=== PATIENT | female | born 1960 | race Two or more races ===

== ENCOUNTER 2017-12-15 05:18 | Day surgery (SDC) | payer OTHER ==
[2017-12-14 15:56] VITALS: BMI 27.4
[2017-12-15] MEDS ORDERED: LIDOCAINE HCL 1%, 10 MG/ML (20ML VIAL) ONE (13:28)
[2017-12-15] MEDS ORDERED: PROPOFOL 20 ML ONE (13:46)
[2017-12-15] MEDS ORDERED: MIDAZOLAM HCL 2 MG/2 ML SINGLE DOSE VIAL ONE (13:46)
[2017-12-15] MEDS ORDERED: ceFAZolin SODIUM 1 GM VIAL IVPB ONE (13:50)
[2017-12-15] MEDS ORDERED: ceFAZolin SODIUM 1 GM VIAL ONE (13:51)
[2017-12-15] MEDS ORDERED: LIDOCAINE HCL 1%, 10 MG/ML (50 mL VIAL) IJ ONE (13:52)
--- NOTE | 2017-12-15 14:23 | OP ---
Operative Note - Note: Operative Date: 12/15/17 Pre-Operative Diagnosis: rule out dermatomyositis Operation: right thigh muscle biopsy Post-Operative Diagnosis: Same as Pre-op Surgeon: Pete Mendoza Anesthesia: Fractional Estimated Blood Loss (mls): 20 Operative Report Dictated: Yes
--- NOTE | 2017-12-15 14:33 | HP ---
Admitting History and Physical - Admission Chief Complaint: muscle weakness, dermatomyositis Limitations to Obtaining History: No Limitations - Smoking History Smoking history: Never smoked Have you smoked in the past 12 months: No - Alcohol/Substance Use Hx Alcohol Use: No Home Medications - Allergies Allergies/Adverse Reactions: Allergies Allergy/AdvReac Type Severity Reaction Status Date / Time No Known Allergies Allergy Verified 12/15/17 12:38 - Home Medications Home Medications: Ambulatory Orders Hydroxychloroquine Sulfate [Plaquenil] 200 mg PO BID 12/14/17 Prednisone 60 mg PO DAILY 12/14/17 Review of Systems - Review of Systems Constitutional: reports: No Symptoms Eyes: reports: No Symptoms HENT: reports: No Symptoms Neck: reports: No Symptoms Cardiovascular: reports: No Symptoms Respiratory: reports: No Symptoms Gastrointestinal: reports: No Symptoms Genitourinary: reports: No Symptoms Breasts: reports: No Symptoms Reported Musculoskeletal: reports: No Symptoms Integumentary: reports: No Symptoms Neurological: reports: No Symptoms Endocrine: reports: No Symptoms Hematology/Lymphatic: reports: No Symptoms Psychiatric: reports: No Symptoms Physical Examination Vital Signs: Vital Signs Temperature 98.3 F 12/15/17 12:28 Pulse Rate 73 12/15/17 12:28 Respiratory Rate 20 12/15/17 12:28 Blood Pressure 115/68 12/15/17 12:28 O2 Sat by Pulse Oximetry (%) 98 12/15/17 12:28 Constitutional: Yes: Well Nourished, No Distress, Calm Eyes: Yes: WNL, Conjunctiva Clear, EOM Intact HENT: Yes: WNL, Atraumatic, Normocephalic Neck: Yes: WNL, Supple, Trachea Midline Cardiovascular: Yes: WNL, Regular Rate and Rhythm Respiratory: Yes: WNL, Regular, CTA Bilaterally Gastrointestinal: Yes: WNL, Normal Bowel Sounds ...Rectal Exam: Yes: WNL Renal/: Yes: WNL Breast(s): Yes: WNL Musculoskeletal: Yes: WNL Extremities: Yes: WNL Edema: No Peripheral Pulses WNL: Yes Integumentary: Yes: WNL Neurological: Yes: WNL, Alert, Oriented ...Motor Strength: WNL Psychiatric: Yes: WNL Problem List - Problems (1) Dermatomyositis Code(s): M33.90 - DERMATOPOLYMYOSITIS, UNSP, ORGAN INVOLVEMENT UNSPECIFIED Assessment/Plan rule out dermatomyositis 1. for right thigh muscle biopsy today
--- NOTE | 2017-12-15 17:15 | OP ---
DATE OF OPERATION: 12/15/2017 PREOPERATIVE DIAGNOSIS: Rule out dermatomyositis. POSTOPERATIVE DIAGNOSIS: Rule out dermatomyositis. PROCEDURE: Right thigh muscle biopsy. SURGEON: Pete Barakat M.D. ANESTHESIA: Fractional. BLOOD LOSS: 20 mL. INDICATION: The patient is a 57-year-old female sent from the elastic cutter to rule out dermatomyositis. The elastic cutter would like a muscle biopsy. The patient came into ambulatory surgery. Patient was consented for the procedure understanding all risks, benefits, and alternatives and taken to the operating room. DESCRIPTION OF PROCEDURE: Once in the operating room, she was laid on the operating table in a supine manner, and the area of the right thigh was prepped and draped in sterile surgical manner. We then made a 5-cm transverse incision over the right thigh hemostasis we used electrocautery to get down through all the subcutaneous tissue and get down to the fascia. Fascia was then opened with the Metzenbaum scissors and muscle was visualized. We then took an Allis clamp and we were able to grab the muscle, and with Metzenbaum scissors we were able to transect the muscle and sent it to pathology. Bovie electrocautery was used to control all hemostasis. Wound was well irrigated. 3-0 Vicryl was used and the subcutaneous tissue was approximated in an interrupted manner, and the skin was closed with 4-0 Biosyn subcuticular running fashion. We then went and dried the area, Steri-Strips were placed, 4x4s, Tegaderm was placed. Patient tolerated the procedure with no complications. Patient transferred back in stable condition. PETE BARAKAT DO NP/[id number]
[2017-12-15 18:22] VITALS: BP 130/70; PULSE 68; TEMP 98
--- NOTE | 2017-12-26 14:13 | PATH ---
Surgical Pathology Report Patient Name: VARINDER TAO [facility]. Rec. #: [id number] /Age/Gender: 1960 (Age: 57) / F Account: [id number] Location: [facility] SURGICAL Taken: 12/15/2017 Received: 12/15/2017 Reported: 12/26/2017 Physicians: Pete Mendoza Specimen(s) Received MUSCLE BIOPSY, RIGHT THIGH Clinical History Dermatomyositis Final Diagnosis MUSCLE, THIGH, RIGHT, BIOPSY: ACTIVE MYOPATHY, SHOWING FOCALIZED, MYOCYTE INJURY AND MILD CHRONIC INFLAMMATION IN THE BACKGROUND OF MYOFIBER ATROPHY, COMPATIBLE WITH DERMATOMYOSITIS AND RELATED CONDITIONS. Comment: This biopsy reveals focalized myocyte injury associated with regional, mild, chronic inflammatory response, in the background of myofiber atrophy. Vaguely, a perifascicular pattern of involvement is suggested. Immunohistochemically, MHC class I is found to be upregulated, also exhibiting a perifascicular pattern. Taken together with the provided clinical information of skin rash (by a telephone conversation with Dr. Worthington, the patient's clip riveter, on 12/22/2017), as well as positive-QUANG, significant CK and aldolase elevation, and myopathic EMG, our morphological observation places dermatomyositis and related conditions high in the differential diagnosis. It is, however, noted that in general, dermatomyositis, systemic lupus erythematosus, and antisynthetase syndrome could show on biopsy indistinguishable features, and clinical correlation is requested to rule in/out of those diseases. We have carried out an electron microscopic examination: ultra-thin epoxy resin sections have been magnified by the transmission electron microscope in the range between 15,000x and 50,000x, focusing upon possible abnormalities in the endomysial microvessels. There is a necrotic capillary. Some viable endomysial capillaries show slightly thickened endothelial cells with reduced pinocytotic vesicles, exhibiting mildly hyperplastic organelles. The basal lamina of those capillaries are mildly thickened. There is a reticulotubular aggregate (RTA) in one of those endothelial cells. In general, RTA can be seen in dermatomyositis, SLE, Sjogren syndrome, mixed connective tissue disease, as well as HIV infection. Therefore, the result of this electron microscopic examination further supports our light microscopic impression, and we finalize the diagnosis. This case was sent for consultation and work-up to Dr. Colin Garcia from [place], [place], the diagnosis reflects her opinion ([id number]). See Graves report for additional details ([id number]). Electronically Signed Pebbles Lopez M.D. Gross Description Received fresh labeled "muscle biopsy right thigh," is a 2 cm in length x 1.2 cm in diameter red-brown, cylindrical portion of muscle. The specimen is divided, placed into saline soaked gauze, glutaraldehyde and formalin. The specimen is sent to [facility] for further studies. 12/15/2017 saudi12/15/2017
== END 2017-12-15 16:15 | disposition home or self-care (01) ==
LOC: JASU-SURG 05:18
PROVIDERS: ATTEND Surgery Vascular Surgery
PROC: 0KBQ0ZX Excision of Right Upper Leg Muscle, Open Approach, Diagnostic (ICD-10-PCS; principal; 2017-12-15 14:00)
DX: M33.90 Dermatopolymyositis, unspecified, organ involvement unspecified (principal)
CPT/HCPCS: 88300-TC

== ENCOUNTER 2018-05-20 06:09 | Inpatient (IN) | payer OTHER ==
--- NOTE | 2018-05-12 10:08 | HP ---
Admitting History and Physical - Primary Care Physician PCP: Davian Glass - Admission Chief Complaint: Right breast DCIS History of Present Illness: 57 year old postmenapasusal female with Dermatomyositis x8 mos and was on steroid taper recently. Mammogram showed extensive calcifications right breast upper outer quarant extending over 5.4 cm. Stereotactic core bx on more medial and lateral calcifiactions 03/2018 both came back with high grade DCIS ER/[place]+. She has a BRCA 1 VUS on genetic testing. History Source: Patient Limitations to Obtaining History: Language Barrier (speaks croatian) - Past Medical History Dermatology: Yes: Other (Dermatomyositis x8 mos with body rash) - Past Surgical History Past Surgical History: Yes: Cholecystectomy Additional Past Surgical History: CTS - Smoking History Smoking history: Never smoked Have you smoked in the past 12 months: No - Alcohol/Substance Use Hx Alcohol Use: No Home Medications - Allergies Allergies/Adverse Reactions: Allergies Allergy/AdvReac Type Severity Reaction Status Date / Time No Known Allergies Allergy Verified 12/15/17 12:38 - Home Medications Home Medications: Ambulatory Orders Hydroxychloroquine Sulfate [Plaquenil] 200 mg PO BID 12/14/17 Prednisone 60 mg PO DAILY 12/14/17 Family Disease History - Family Disease History Family Disease History: CA: Grandparent (pancreatic 50), Brother (lung ca 63) Physical Examination Constitutional: Yes: Well Nourished Breast(s): Yes: Other ( Small B sized cups Scarring right breast upper aspect from recent bxs. No palpable masses or adenopathy bilaterally . She does have a diffuset thickened rash on her skin consistent with dermatomyositis) Problem List - Problems (1) Ductal carcinoma in situ (DCIS) of right breast Code(s): D05.11 - INTRADUCTAL CARCINOMA IN SITU OF RIGHT BREAST Assessment/Plan Right total mastectomy,, lymphoscintogram , right sentenel node biopsy possible axillary node dissection reconstruction
[2018-05-18 14:17] VITALS: BMI 29.2
[2018-05-20] MEDS ORDERED: PAPAVERINE HCL 30 MG/1 ML 10 ML VIAL NR ONE (07:05)
[2018-05-20] MEDS ORDERED: BUPIVACAINE HCL/PF 0.25% (2.5MG/ML) 10 ML VIAL ONE (07:05)
[2018-05-20] MEDS ORDERED: ISOSULFAN BLUE 10 MG/ML VIAL SQ ONE (07:05)
[2018-05-20] MEDS ORDERED: LIDOCAINE 1%/EPI 1:100000 (20 ML MULTI DOSE VIAL) ONE (07:05)
[2018-05-20] MEDS ORDERED: HEPARIN NA (PORCINE) 5,000 UNITS/ML 1ML VIAL ONE (07:05)
[2018-05-20] MEDS ORDERED: PROPOFOL 20 ML ONE (07:27)
[2018-05-20] MEDS ORDERED: ROCURONIUM BROMIDE 50 MG/5 ML VIAL ONE ×3 (07:27→11:43)
[2018-05-20] MEDS ORDERED: MIDAZOLAM HCL 2 MG/2 ML SINGLE DOSE VIAL ONE ×2 (07:28)
[2018-05-20] MEDS ORDERED: LIDOCAINE HCL/PF 2% SDV 5ML VIAL ONE (07:28)
[2018-05-20] MEDS ORDERED: DEXAMETHASONE SOD PHOSPHATE 4 MG/1 ML VIAL ONE (07:28)
[2018-05-20] MEDS ORDERED: KETAMINE HCL 200 MG/20 ML VIAL ONE (07:28)
[2018-05-20] MEDS ORDERED: ONDANSETRON 4 MG/2 ML VIAL ONE ×2 (07:28→17:37)
[2018-05-20] MEDS ORDERED: SODIUM CHLORIDE 0.9% P/F 10 ML VIAL IJ ONE (07:28)
[2018-05-20] MEDS ORDERED: ceFAZolin SODIUM 1 GM VIAL ONE ×4 (07:28→17:37)
[2018-05-20] MEDS ORDERED: DESFLURANE GAS 240 ML BOTTLE IH ONE (07:37)
[2018-05-20] MEDS ORDERED: DEXMEDETOMIDINE HCL 200 MCG/2 ML IVPB ONE (07:37)
[2018-05-20] MEDS ORDERED: BUPIVACAINE LIPOSOME/PF (EXPAREL) 266 MG/20 ML VIAL NR ONE (08:00)
[2018-05-20] MEDS ORDERED: ESMOLOL HCL 100,000 MCG/10 ML VIAL ONE (08:11)
[2018-05-20] MEDS ORDERED: ceFAZolin SODIUM 1 GM VIAL IVPB ONE ×2 (08:36→12:30)
--- NOTE | 2018-05-20 12:47 | OP ---
DATE OF OPERATION: 05/20/2018 PREOPERATIVE DIAGNOSIS: Right breast extensive ductal carcinoma in situ. POSTOPERATIVE DIAGNOSIS: Right breast extensive ductal carcinoma in situ. PROCEDURE: Right breast total mastectomy with right axillary sentinel lymph node biopsy and right deep flap reconstruction. ANESTHESIA: General endotracheal anesthesia. PRIMARY SURGEON: Eric Funez MD CONTRACTS ADVISOR: SHAHANA Hopson, PRIMARY SURGEON: For the right breast deep flap reconstruction is Eric Guadalupe MD, with his multimedia production assistant, Terry Johnson MD. COMPLICATIONS: There are no complications. Briefly, the patient is a 57-year-old G3, P3, postmenopausal female of [facility] descent. She was found to have extensive calcifications in the right breast on screening mammography and underwent stereotactic core biopsies of the medial and lateral extent of the calcifications with both turned out to be high-grade DCIS extending over an area of over 5 cm. Given the extensive calcifications, mastectomy was indicated. She was seen by the plastic surgeons and chose to have a deep flap reconstruction. She did have an MRI which showed the clips and disease in the right breast. The patient did undergo genetic testing which was negative with a VUS and a BRCA1 gene. She was brought in for the procedure on May 20, 2018, at [facility]. She underwent lymphoscintigraphy and nuclear medicine and was brought to the holding area. In the holding area, site verification was made, and informed consent was obtained. She was marked preoperatively by the plastic surgeon. Using translation services, consistent was obtained. Site verification was made. She was brought into the operating room and laid on the OR table in the supine position. Venodynes were placed on the lower extremities prior to induction. She received a g of Ancef prior to incision. She underwent general endotracheal anesthesia. Both breasts were sterilely prepped and draped in usual fashion, and the abdomen was prepped as well. The abdomen was marked preoperatively by the plastic surgeons to identify the perforators using both the SPY intraoperative perfusion device as well as intraoperative Doppler ultrasound. Three mL of Lymphazurin blue were injected intradermally around the periareolar region of the right breast nipple-areolar complex. Massage was instituted. After she was appropriately anesthetized and sterilely prepped and draped, the right axillary sentinel lymph node biopsy was first performed. An incision was made just below the hair-bearing area of the right axilla. Dissection was undertaken using the Neoprobe to direct the dissection. The first sentinel node was found in the level 1 region of the right axilla, had a 10-second count of 63,936, and was also blue. The second sentinel lymph node had a 10-second gamma count of 17,357, and was also blue. The third sentinel lymph node had a 10-second gamma count of 15,730, and was also blue. The fourth sentinel lymph node was blue and had a 10-second gamma count of 1307. Background count after removal of these 4 nodes was 1637. Frozen section of all 4 nodes came back negative, so no further nodes were removed. At this point, the right total mastectomy was performed through a periareolar incision encompassing the entire right breast nipple-areolar complex. Skin flaps were raised superiorly to the level of the clavicle, medially to the level of the sternum, laterally to the level of the latissimus, and inferiorly below the level of the inframammary fold. The breast was taken out off the pectoralis major muscle from medial to lateral and completely removed intact. It was oriented with a long lateral/short superior suture, and specimen radiograph showed removed removal of the medical clip, but the lateral more superficial clip was not seen on the initial specimen radiograph. An separate upper outer quadrant anterior margin of subcutaneous tissue was sent as right breast upper outer quadrant anterior margin with a suture marked in the biopsy cavity site, and specimen radiograph of that specimen did show the clip in question. Hemostasis was achieved. A separate superior anterior margin was also taken, and this was sent separately to Pathology in formalin as a right breast anterior superior margin with a suture marking the biopsy cavity site. At this point, hemostasis was achieved, and the wound was copiously irrigated with warm sterile saline. The skin flaps were inspected to be sure all visual gross breast tissue was completely excised. The rest of the dictation will be dictated by Plastic Surgery for the deep inferior epigastric pedicle flap. All sponge and needle counts were correct at this point in the case. Estimated blood loss was about 100 mL. She was hemodynamically stable at this point of the case. She did have a Peralta placed at the beginning of the case and had excellent urine output at this point of the case. She did receive a stress does of steroids with 100 mg of hydrocortisone given at the beginning of the case given her chronic steroid use. The patient will be recovered and then admitted to the ICU postoperatively for flap management postoperatively. She will have a TAP for local pain control at the end of the case, which will be performed by Plastic Surgery. ERIC FUNEZ M.D. [id number]
[2018-05-20] MEDS ORDERED: BUPIVACAINE HCL/PF 0.25% (2.5MG/ML) 10 ML VIAL IJ ONE (13:30)
[2018-05-20] MEDS ORDERED: BUPIVACAINE LIPOSOME/PF (EXPAREL) 266 MG/20 ML VIAL IJ ONE (13:30)
[2018-05-20] MEDS ORDERED: GLYCOPYRROLATE 0.2 MG/1 ML VIAL ONE (15:07)
[2018-05-20] MEDS ORDERED: NEOSTIGMINE METHYLSULFATE 0.5 MG/1 ML - 10 ML MDV ONE (15:07)
[2018-05-20] MEDS ORDERED: diazePAM 5 MG TABLET PO PRN (16:02)
[2018-05-20] MEDS: DEXTROSE 5%-0.45% SALINE 1,000 ML IV SCH (16:15)
[2018-05-20] MEDS ORDERED: ONDANSETRON 4 MG/2 ML VIAL IVPUSH PRN (17:23)
[2018-05-20] MEDS ORDERED: PROMETHAZINE HCL 25 MG/1 ML VIAL IVPUSH PRN (17:23)
[2018-05-20] MEDS ORDERED: LACTATED RINGERS SOLUTION 1,000 ML IV SCH (17:30)
--- NOTE | 2018-05-20 20:26 | CONSULT ---
Consult Consult Specialty:: ICU Reason for Consultation:: ICU monitoring post-mastectomy - History of Present Illness History of Present Illness: 57 yr old woman with dermatomyositis and DCIS ER/[place]+ s/p right breast total mastectomy with right axillary sentinel lymph node biopsy and right deep flap reconstruction admitted to ICU for flap management. POD#0. c/o dry throat and thirst. pain currently 4/10 at surgical sites. denies tachycardia, fever, abdominal pain, cough, n/v. Pmhx: dx'd with dermatomyositis 8 months ago via muscle biopsy, treated with prednisone daily and methotrexate qweekly Surghx: cholecystectomy - History Source History Provided By: Patient, Family Member, Medical Record - Past Medical History Dermatology: Yes: Other (Dermatomyositis x8 mos with body rash) Additional Medical History: Dermatomyositis with skin changes - Past Surgical History Past Surgical History: Yes: Cholecystectomy - Alcohol/Substance Use Hx Alcohol Use: No - Smoking History Smoking history: Never smoked Have you smoked in the past 12 months: No Home Medications - Allergies Allergies/Adverse Reactions: Allergies Allergy/AdvReac Type Severity Reaction Status Date / Time No Known Allergies Allergy Verified 12/15/17 12:38 - Home Medications Home Medications: Ambulatory Orders Prednisone 7.5 mg PO DAILY 12/14/17 Folic Acid 1 mg PO DAILY 05/18/18 Methotrexate [Mexate -] 20 mg PO Q7D 05/18/18 Family Disease History - Family Disease History Family Disease History: CA: Grandparent (pancreatic 50), Brother (lung ca 63) Physical Exam Vital Signs: Vital Signs Temperature 98.9 F 05/20/18 19:15 Pulse Rate 86 05/20/18 19:15 Respiratory Rate 16 05/20/18 19:15 Blood Pressure 128/88 05/20/18 19:15 O2 Sat by Pulse Oximetry (%) 100 05/20/18 19:15 Constitutional: Yes: No Distress, Calm Eyes: Yes: Conjunctiva Clear, EOM Intact HENT: Yes: Atraumatic, Normocephalic Neck: Yes: Supple, Trachea Midline Cardiovascular: Yes: Regular Rate and Rhythm. No: Murmur Respiratory: Yes: Other (quiet at bases) Gastrointestinal: Yes: Other (CDI dressing in place) Breast(s): Yes: Right (portion of incision visible through cutout on bra appears clean and dry without discharge. doppler flow) Extremities: Yes: WNL Edema: No Wound/Incision: Yes: Clean/Dry Neurological: Yes: Alert, Oriented Assessment/Plan 57 yr old woman s/p right mastectomy with flap POD #0 being monitored in the ICU. POD#0, instructed at per surgery orders 1 drain on left side, 2 drains on right side, monitor output pain control valium and oxycodone po Q1h doppler checks for flow on right breast flap zofran for nausea ancef q6hr IV for 24hrs Rheumotology Dermatomyositis - continue prednisone and methotrexate treatment Prophylaxis -GI -- pepcid BID - DVT - TEDS and SCD's Diet: clear liq diet without caffeine or chocolate, advance as tolerated Activity: OOB to chair as tolerated
[2018-05-20] MEDS ORDERED: CEFAZOLIN 1 GM/D5W 1 GM/50 ML BAG IVPB SCH (21:00)
[2018-05-20] MEDS: ASPIRIN 325 MG TABLET PO SCH (21:25)
[2018-05-20] MEDS: DOCUSATE SODIUM 100 MG CAPSULE (FP) PO SCH (21:25)
[2018-05-20] MEDS: CEFAZOLIN 1 GM/D5W 1 GM/50 ML BAG IVPB SCH (22:00)
[2018-05-20] MEDS: FAMOTIDINE 20 MG/50 ML IVPB 20 MG/50 ML MG IVPB SCH (22:00)
[2018-05-21] MEDS: DEXTROSE 5%-0.45% SALINE 1,000 ML IV SCH (04:20)
[2018-05-21] MEDS: CEFAZOLIN 1 GM/D5W 1 GM/50 ML BAG IVPB SCH ×3 (06:43→17:15)
[2018-05-21] MEDS ORDERED: DEXTROSE 5%-0.45% SALINE 1,000 ML IV SCH (08:00)
[2018-05-21] MEDS: oxyCODONE HCL 5 MG TABLET PO PRN ×4 (08:49→23:49)
--- NOTE | 2018-05-21 09:07 | PN ---
Progress Note (short form) - Note Progress Note: POD#1 PT without any complaints this am. Mild pressure to lower abdomen. Pt seen and examined with Dr. Johnson this am. No numbness or tingling to her upper extremities Vital Signs Period Temp Pulse Resp BP Sys/Silvestre Pulse Ox Last 24 Hr 98.9 F-99.8 F 79-105 16-19 107-148/56-89 97-100 QUINN: Left upper abd-45ml Right abd: 90ml Right breast: 96 ml Peralta 1300ml GEN: A&0x3, NAD Right breast with good doppler signal, gd cap refill to the breast without any evidence of ischemia. Surrounding breast tissue with minimal ecchymosis. Incision c/d/i without any drainage Abd: inc c/d/i with pernio dressing. No evidence of ischemia/drainage or erythema. Umbilicus c/d/i/viable. A/P: 57 yo female s/p Right breast mastectomy with THOMAS flap reconstruction, POD #1 Diet advanced to regular May be oob to chair(to remain in flexed position with ambulating and transfers) Continue IV abx Resume oral medications, pt on daily prednisone for skin condition. Will add vitamin A(oral) to promote healing Peralta removed after OOB Oral pain medications as needed DVT ppx with SCDs/ambulation and aspirin 325 daily May have Peter quispe removed, Continue serial flap checks
[2018-05-21 09:46] LABS: HEMATOCRIT 30.1 % (32.4-45.2); HEMOGLOBIN 10.3 GM/dL (10.7-15.3); MCH 34.3 pg (25.7-33.7); MCHC 34.1 g/dl (32.0-36.0); MEAN CELL VOLUME 100.4 fl (80-96); MEAN PLT VOLUME 7.1 fl (7.5-11.1); PLATELET COUNT 191 K/MM3 (134-434); RBC 2.99 M/mm3 (3.60-5.2); RDW 14.1 % (11.6-15.6); WHITE BLOOD COUNT 7.8 K/mm3 (4.0-10.0)
--- NOTE | 2018-05-21 09:59 | PN ---
Progress Note, Physician Chief Complaint: S/P right mastectomy with snbx and THOMAS reconstruction POD#1 History of Present Illness: Patient was seen today at the bedside and reports mild abdominal discomfort but otherwise is tolerating po well. - Current Medication List Current Medications: Active Medications Aspirin (Asa -) 325 mg PO DAILY [facility] Last Admin: 05/20/18 21:25 Dose: 325 mg Diazepam (Valium -) 5 mg PO Q8H PRN PRN Reason: MUSCLE SPASMS Docusate Sodium (Colace -) 100 mg PO BID [facility] Last Admin: 05/20/18 21:25 Dose: 100 mg Fentanyl (Sublimaze Injection -) 50 mcg IVPUSH [id number] PRN PRN Reason: PAIN-PACU ORDER X 4 DOSES ONLY Last Admin: 05/20/18 17:45 Dose: 50 mcg Folic Acid (Folic Acid -) 1 mg PO DAILY [facility] Hydrocortisone Sodium Succinate (Solu-Cortef -) 100 mg IVPB DAILY [facility] Dextrose/Sodium Chloride (D5-1/2ns -) 1,000 mls @ 125 mls/hr IV ASDIR [facility] Last Admin: 05/21/18 04:20 Dose: 125 mls/hr Cefazolin Sodium (Ancef 1 Gm Premixed Ivpb -) 1 gm in 50 mls @ 100 mls/hr IVPB Q6H [facility] Stop: 05/22/18 00:00 Last Admin: 05/21/18 06:43 Dose: 100 mls/hr Famotidine/Sodium Chloride (Pepcid 20 Mg Premixed Ivpb -) 20 mg in 50 mls @ 100 mls/hr IVPB BID [facility] Last Admin: 05/20/18 22:00 Dose: 100 mls/hr Methotrexate (Mexate -) 20 mg PO We@1000 [facility] Ondansetron HCl (Zofran Injection) 4 mg IVPUSH Q6H PRN PRN Reason: NAUSEA AND/OR VOMITING Last Admin: 05/20/18 17:45 Dose: 4 mg Oxycodone HCl (Roxicodone -) 5 mg PO Q4H PRN PRN Reason: PAIN LEVEL 1 - 3 Last Admin: 05/21/18 08:49 Dose: 5 mg Oxycodone HCl (Roxicodone -) 10 mg PO Q4H PRN PRN Reason: PAIN LEVEL 6-10 Prednisone (Deltasone -) 7.5 mg PO DAILY ARNULFO Promethazine HCl (Phenergan Injection -) 12.5 mg IVPUSH Q6H PRN PRN Reason: NAUSEA-FOR RESCUE AFTER 15 MIN Vitamin A (Aquasol A -) 20,000 units PO DAILY ARNULFO - Objective Vital Signs: Vital Signs Temperature 99.8 F H 05/21/18 06:00 Pulse Rate 81 05/21/18 08:00 Respiratory Rate 19 05/21/18 08:00 Blood Pressure 111/67 05/21/18 08:00 O2 Sat by Pulse Oximetry (%) 100 05/20/18 21:00 Constitutional: Yes: Well Nourished, Calm Breast(s): Yes: Other (Right mastectomy site incision is clean without any evidence of flap ischemia noted. The skin is warm and with good color. Abdominal incision is without erythema or discharge noted. The JPs with serosanginous discharge and maintaining suction. Good doppler signal as per Dr. Johnson.) Labs: CBC, BMP 05/21/18 09:35 Problem List - Problems (1) Ductal carcinoma in situ (DCIS) of right breast Code(s): D05.11 - INTRADUCTAL CARCINOMA IN SITU OF RIGHT BREAST Assessment/Plan Assessment S/P right mastectomy with right snbx and THOMAS reconstruction POD#1 Plan: Patient to be OOB today with assistance and maintain semi Flowers position. DC hydrocortisone and begin prednisone as ordered AxBx and pain control as ordered human services program specialist to see patient today for VNS at home IS 10 xs hourly Make appt to see Dr. Glass and Dr. Johnson
[2018-05-21] MEDS ORDERED: HYDROCORTISONE SOD SUCCINATE 100 MG/2 ML VIAL IVPB SCH (10:00)
[2018-05-21 10:17] LABS: ANION GAP 10 MMOL/L (8-16); BLOOD UREA NITROGEN 10 mg/dL (7-18); CALCIUM 7.6 mg/dL (8.5-10.1); CHLORIDE 109 mmol/L (98-107); CO2 25 mmol/L (21-32); CREATININE 0.8 mg/dL (0.55-1.3); GLUCOSE,RANDOM 123 mg/dL (74-106); MAGNESIUM 1.7 mg/dL (1.8-2.4); PHOSPHOROUS 2.7 mg/dL (2.5-4.9); POTASSIUM 3.4 mmol/L (3.5-5.1); SODIUM 143 mmol/L (136-145)
[2018-05-21] MEDS: FAMOTIDINE 20 MG/50 ML IVPB 20 MG/50 ML MG IVPB SCH ×2 (10:21→22:09)
[2018-05-21] MEDS: ASPIRIN 325 MG TABLET PO SCH (10:21)
[2018-05-21] MEDS: VITAMIN A 10,000 UNITS CAPSULE PO SCH (10:22)
[2018-05-21] MEDS: FOLIC ACID 1 MG TABLET (FP) PO SCH (10:22)
[2018-05-21] MEDS: DOCUSATE SODIUM 100 MG CAPSULE (FP) PO SCH ×2 (10:23→22:09)
[2018-05-21] MEDS: predniSONE 5 MG TABLET (UD) PO SCH (10:33)
[2018-05-21 11:14] LABS: ANISOCYTOSIS 0; MACROCYTOSIS 0; PLATELET ESTIMATE NORMAL
--- NOTE | 2018-05-21 12:02 | PN ---
Teaching Attending Note Name of Resident: Dorene Neff ATTENDING PHYSICIAN STATEMENT I saw and evaluated the patient. I reviewed the resident's note and discussed the case with the resident. I agree with the resident's findings and plan as documented. SUBJECTIVE: Patient seen and examined in the ICU. Awake and alert. NAD on NC O2. Pain seems adequately controlled. No SOB. Strong doppler pulses. Intake & Output 05/18/18 05/19/18 05/20/18 05/21/18 23:59 23:59 23:59 23:59 Intake Total 4115 900 Output Total 1170 1241 Balance 2945 -341 Weight 170 lb 170 lb Last Vital Signs Temp Pulse Resp BP Pulse Ox 99.4 F 70 18 105/59 L 100 05/21/18 10:00 05/21/18 10:00 05/21/18 10:00 05/21/18 10:00 05/20/18 21:00 Active Medications Aspirin (Asa -) 325 mg PO DAILY ON LICENSE OF [facility] Last Admin: 05/21/18 10:21 Dose: 325 mg Diazepam (Valium -) 5 mg PO Q8H PRN PRN Reason: MUSCLE SPASMS Docusate Sodium (Colace -) 100 mg PO BID ON LICENSE OF [facility] Last Admin: 05/21/18 10:23 Dose: 100 mg Fentanyl (Sublimaze Injection -) 50 mcg IVPUSH [id number] PRN PRN Reason: PAIN-PACU ORDER X 4 DOSES ONLY Last Admin: 05/20/18 17:45 Dose: 50 mcg Folic Acid (Folic Acid -) 1 mg PO DAILY ON LICENSE OF [facility] Last Admin: 05/21/18 10:22 Dose: 1 mg Dextrose/Sodium Chloride (D5-1/2ns -) 1,000 mls @ 125 mls/hr IV ASDIR ON LICENSE OF [facility] Last Admin: 05/21/18 04:20 Dose: 125 mls/hr Cefazolin Sodium (Ancef 1 Gm Premixed Ivpb -) 1 gm in 50 mls @ 100 mls/hr IVPB Q6H ON LICENSE OF [facility] Stop: 05/22/18 00:00 Last Admin: 05/21/18 11:48 Dose: 100 mls/hr Famotidine/Sodium Chloride (Pepcid 20 Mg Premixed Ivpb -) 20 mg in 50 mls @ 100 mls/hr IVPB BID ON LICENSE OF [facility] Last Admin: 05/21/18 10:21 Dose: 100 mls/hr Methotrexate (Mexate -) 20 mg PO We@1000 ON LICENSE OF [facility] Ondansetron HCl (Zofran Injection) 4 mg IVPUSH Q6H PRN PRN Reason: NAUSEA AND/OR VOMITING Last Admin: 05/20/18 17:45 Dose: 4 mg Oxycodone HCl (Roxicodone -) 5 mg PO Q4H PRN PRN Reason: PAIN LEVEL 1 - 3 Last Admin: 05/21/18 11:41 Dose: 5 mg Oxycodone HCl (Roxicodone -) 10 mg PO Q4H PRN PRN Reason: PAIN LEVEL 6-10 Prednisone (Deltasone -) 7.5 mg PO DAILY ON LICENSE OF [facility] Last Admin: 05/21/18 10:33 Dose: 7.5 mg Promethazine HCl (Phenergan Injection -) 12.5 mg IVPUSH Q6H PRN PRN Reason: NAUSEA-FOR RESCUE AFTER 15 MIN Vitamin A (Aquasol A -) 20,000 units PO DAILY ON LICENSE OF [facility] Last Admin: 05/21/18 10:22 Dose: 20,000 units = Constitutional: Yes: No Distress Eyes: Yes: Conjunctiva Clear, EOM Intact HENT: Yes: Atraumatic, Normocephalic Neck: Yes: Supple, Trachea Midline Cardiovascular: Yes: Regular Rate and Rhythm. No: Murmur Respiratory: Yes: Clear Gastrointestinal: Yes: Other (CDI dressing in place) Breast(s): Yes: Right (portion of incision visible through cutout on bra appears clean and dry without discharge. doppler flow) Extremities: Yes: WNL Edema: No Wound/Incision: Yes: Clean/Dry Neurological: Yes: Alert, Oriented Laboratory Results - last 24 hr 05/21/18 05/21/18 09:35 09:35 WBC 7.8 RBC 2.99 L Hgb 10.3 L Hct 30.1 L D MCV 100.4 H MCH 34.3 H MCHC 34.1 RDW 14.1 Plt Count 191 D MPV 7.1 L Neutrophils % No Result Required. Neutrophils % (Manual) 71.0 Band Neutrophils % 0.0 Lymphocytes % No Result Required. Lymphocytes % (Manual) 25.0 Monocytes % (Manual) 4 Eosinophils % (Manual) 0.0 Basophils % (Manual) 0.0 Myelocytes % (Man) 0 Promyelocytes % (Man) 0 Blast Cells % (Manual) 0 Nucleated RBC % 0 Metamyelocytes 0 Manual Slide Review Cancelled Hypochromia 0 Platelet Estimate Normal Polychromasia 0 Poikilocytosis 0 Anisocytosis 0 Microcytosis 0 Macrocytosis 0 Sodium 143 Potassium 3.4 L Chloride 109 H Carbon Dioxide 25 Anion Gap 10 BUN 10 Creatinine 0.8 Creat Clearance w eGFR > 60 Random Glucose 123 H Calcium 7.6 L Phosphorus 2.7 Magnesium 1.7 L Assessment/Plan POD #1: S/P right mastectomy with THOMAS flap Breast CA (DCIS) Dermatomyositis Follow Doppler Pulse Incentive Spirometry O2 as needed VTE prophylaxis Pain control Restart Prednisone OD PO as tolerated OOB to chair Further planning per surgery Dr Ya
[2018-05-21] MEDS ORDERED: POTASSIUM CHLORIDE TABS 10 MEQ TABLET.ER (FP) PO ONE (12:45)
[2018-05-21] MEDS ORDERED: CALCIUM GLUCONATE 10% - 1,000 MG/10 ML VIAL IVPB ONE (14:00)
--- NOTE | 2018-05-21 14:12 | PN ---
Progress Note (short form) - Note Progress Note: SUBJECTIVE Patient seen and examined at the bedside. Pain localized to surgical sites, now 4/10. Pleasant. POD #1. OBJECTIVE General: Alert, Oriented x 3, No acute distress Head: No signs of trauma Eyes: EOMI, sclera anicteric ENT: Moist mucus membranes Neck: normal ROM Lungs: Lungs CTAB Cardio: Regular rhythm, S1 and S2 present Abdomen: Soft, nondistended; surgical site is clean, dry, and intact Extremities: Distal pulses present SKIN: Warm, Dry, normal turgor Neurologic: CN II-XII grossly intact; normal speech R. flap: Strong pulse ASSESSMENT 57yo F with PMH of dermatomyositis (on steroids and methotrexate) with DCIS ER/ SC+ s/p R. total mastectomy, lymphoscintogram, R. sentinal node biopsy, possible axillary node dissection reconstruction, Right THOMAS flap reconstruction , and TAP for local pain control, with no acute events overnight, now POD #1. PLAN POD #1 Continuous Doppler checks for R. flap 5mg Valium for muscle spasm oxycodone 5mg q4h PRN for 1-5/10 pain oxycodone 10mg q4h PRN for 6-10/10 pain Phenergan 12.5mg IV q5h PRN for nausea Post-op Abx: Cefazolin 1g q6h Disposition per surgery RHEUMATIC Dermatomyositis -Home prednisone and methotrexate FEN Monitor electrolytes -Replete as needed -K=3.4, repleted with 40meq KCl -Ca=7.6, repleted with 1g Calcium Gluconate Patient tolerating po intake, advanced to regular diet D5-1/2NS: 125cc/hr PPX DVT: SCDs in place, 325mg ASA GI: Famotidine 20mg IV OOB to chair Incentive spirometer
[2018-05-21] MEDS: ENOXAPARIN NA (PORCINE) 40 MG/0.4 ML DISP.SYRIN SQ SCH (17:14)
[2018-05-21] MEDS: ACETAMINOPHEN 325 MG TABLET (FP) PO SCH (17:15)
[2018-05-22] MEDS: CEFAZOLIN 1 GM/D5W 1 GM/50 ML BAG IVPB SCH (00:51)
[2018-05-22] MEDS: ACETAMINOPHEN 325 MG TABLET (FP) PO SCH ×3 (00:51→12:10)
[2018-05-22 06:10] LABS: BASO % 0.5 % (0-2.0); EOS % 0.3 % (0-4.5); HEMATOCRIT 29.6 % (32.4-45.2); HEMOGLOBIN 10.2 GM/dL (10.7-15.3); LYMPH % 23.4 % (8-40); MCH 34.4 pg (25.7-33.7); MCHC 34.4 g/dl (32.0-36.0); MEAN PLT VOLUME 7.1 fl (7.5-11.1); MONO % 9.5 % (3.8-10.2); NEUT % 66.3 % (42.8-82.8); PLATELET COUNT 184 K/MM3 (134-434); RBC 2.97 M/mm3 (3.60-5.2); RDW 13.8 % (11.6-15.6); WHITE BLOOD COUNT 8.6 K/mm3 (4.0-10.0)
[2018-05-22 06:27] LABS: ALBUMIN 2.7 g/dl (3.4-5.0); ALK PHOS 70 U/L (45-117); ANION GAP 6 MMOL/L (8-16); BILIRUBIN,TOTAL 0.5 mg/dL (0.2-1); BLOOD UREA NITROGEN 10 mg/dL (7-18); CALCIUM 7.8 mg/dL (8.5-10.1); CHLORIDE 104 mmol/L (98-107); CO2 29 mmol/L (21-32); CREATININE 0.7 mg/dL (0.55-1.3); GLUCOSE,RANDOM 95 mg/dL (74-106); MAGNESIUM 1.9 mg/dL (1.8-2.4); PHOSPHOROUS 3.2 mg/dL (2.5-4.9); POTASSIUM 3.8 mmol/L (3.5-5.1); SGOT/AST 21 U/L (15-37); SGPT/ALT 16 U/L (13-61); SODIUM 138 mmol/L (136-145); TOT PROT 5.7 g/dl (6.4-8.2)
[2018-05-22] MEDS ORDERED: PT OWN MED DRAWER 7, Y5N ONE ×3 (08:56→10:19)
[2018-05-22] MEDS: DOCUSATE SODIUM 100 MG CAPSULE (FP) PO SCH ×2 (09:02→21:54)
[2018-05-22] MEDS: FOLIC ACID 1 MG TABLET (FP) PO SCH (09:02)
[2018-05-22] MEDS: ASPIRIN 325 MG TABLET PO SCH (09:02)
[2018-05-22] MEDS: ENOXAPARIN NA (PORCINE) 40 MG/0.4 ML DISP.SYRIN SQ SCH (09:02)
[2018-05-22] MEDS: FAMOTIDINE 20 MG/50 ML IVPB 20 MG/50 ML MG IVPB SCH ×2 (09:02→21:57)
[2018-05-22] MEDS: VITAMIN A 10,000 UNITS CAPSULE PO SCH (10:16)
[2018-05-22] MEDS: predniSONE 5 MG TABLET (UD) PO SCH (10:17)
--- NOTE | 2018-05-22 10:52 | PN ---
Progress Note (short form) - Note Progress Note: Doing very well Great color of flap with good signal Pt will need PT and probable dc in am
--- NOTE | 2018-05-22 11:03 | PN ---
Progress Note, Physician Chief Complaint: Right breast cancer s/p mastectomy History of Present Illness: The patient was found to have extensive calcifications on mammography and had biopsy proven DCIS. Mastectomy was required and she underwent a right total mastectomy with [place] lymph node biopsy with THOMAS flap reconstruction on May 20, 2018. - Current Medication List Current Medications: Active Medications Acetaminophen (Tylenol -) 650 mg PO Q6H [facility] Stop: 05/22/18 12:01 Last Admin: 05/22/18 07:16 Dose: 650 mg Aspirin (Asa -) 325 mg PO DAILY [facility] Last Admin: 05/22/18 09:02 Dose: 325 mg Diazepam (Valium -) 5 mg PO Q8H PRN PRN Reason: MUSCLE SPASMS Docusate Sodium (Colace -) 100 mg PO BID [facility] Last Admin: 05/22/18 09:02 Dose: 100 mg Enoxaparin Sodium (Lovenox -) 40 mg SQ DAILY [facility] Last Admin: 05/22/18 09:02 Dose: 40 mg Folic Acid (Folic Acid -) 1 mg PO DAILY [facility] Last Admin: 05/22/18 09:02 Dose: 1 mg Famotidine/Sodium Chloride (Pepcid 20 Mg Premixed Ivpb -) 20 mg in 50 mls @ 100 mls/hr IVPB BID [facility] Last Admin: 05/22/18 09:02 Dose: 100 mls/hr Methotrexate (Mexate -) 20 mg PO We@1000 [facility] Ondansetron HCl (Zofran Injection) 4 mg IVPUSH Q6H PRN PRN Reason: NAUSEA AND/OR VOMITING Last Admin: 05/20/18 17:45 Dose: 4 mg Oxycodone HCl (Roxicodone -) 5 mg PO Q4H PRN PRN Reason: PAIN LEVEL 1 - 3 Last Admin: 05/21/18 17:16 Dose: 5 mg Oxycodone HCl (Roxicodone -) 10 mg PO Q4H PRN PRN Reason: PAIN LEVEL 6-10 Last Admin: 05/21/18 23:49 Dose: 10 mg Prednisone (Deltasone -) 7.5 mg PO DAILY [facility] Last Admin: 05/22/18 10:17 Dose: 7.5 mg Promethazine HCl (Phenergan Injection -) 12.5 mg IVPUSH Q6H PRN PRN Reason: NAUSEA-FOR RESCUE AFTER 15 MIN Vitamin A (Aquasol A -) 20,000 units PO DAILY [facility] Last Admin: 05/22/18 10:16 Dose: 20,000 units - Objective Vital Signs: Vital Signs Temperature 98.3 F 05/22/18 04:00 Pulse Rate 82 05/22/18 08:00 Respiratory Rate 17 05/22/18 08:00 Blood Pressure 106/72 05/22/18 08:00 O2 Sat by Pulse Oximetry (%) 100 05/22/18 08:17 Constitutional: Yes: Well Nourished, No Distress, Calm Eyes: Yes: WNL HENT: Yes: Atraumatic, Normocephalic Neck: Yes: WNL Cardiovascular: Yes: Regular Rate and Rhythm Respiratory: Yes: Regular, CTA Bilaterally Gastrointestinal: Yes: Normal Bowel Sounds ...Rectal Exam: Yes: Deferred Genitourinary: Yes: WNL Breast(s): Yes: Other (Right mastectomy wound clean, dry, and intact. Flap warm and viable with excellent doppler signal.) Musculoskeletal: Yes: WNL Extremities: Yes: WNL Wound/Incision: Yes: Clean/Dry, Well Approximated Neurological: Yes: Alert, Oriented ...Motor Strength: WNL Psychiatric: Yes: WNL Labs: CBC, BMP 05/22/18 05:30 05/22/18 05:30 Problem List - Problems (1) Ductal carcinoma in situ (DCIS) of right breast Assessment/Plan: The patient is doing well POD#2 s/p total mastectomy with sentinel lymph node biopsy and THOMAS flap reconstruction. Wound clean, dry, and intact with excellent doppler signal of flap. Good pain control and excellent urine output. Drains functioning well. OOB ambulating as able today with possible discharge tomorrow. Continue antibiotics and steroids. Code(s): D05.11 - INTRADUCTAL CARCINOMA IN SITU OF RIGHT BREAST
--- NOTE | 2018-05-22 11:06 | PN ---
Teaching Attending Note Name of Resident: Dorene Neff ATTENDING PHYSICIAN STATEMENT I saw and evaluated the patient. I reviewed the resident's note and discussed the case with the resident. I agree with the resident's findings and plan as documented. SUBJECTIVE: Pt seen and examined in the ICU. Pain controlled. Some chest tightness but attributes to bra. No fevers or chills. Tolerating PO. OBJECTIVE: Vital Signs Period Temp Pulse Resp BP Sys/Silvestre Pulse Ox Last 24 Hr 98.3 F-100.3 F 78-123 13-22 103-118/55-76 100-100 Intake & Output 05/19/18 05/20/18 05/21/18 05/22/18 23:59 23:59 23:59 23:59 Intake Total 4115 2015 580 Output Total 1170 5684 1340 Balance 6433 -1486 -098 Weight 77.111 kg Gen: NAD at rest Heart: RRR Lung: decreased breath sounds at the bases Abd: soft, incision clean Ext: no edema Drains with serosanguinous fluid CBC, BMP 05/22/18 05:30 05/22/18 05:30 Active Medications Acetaminophen (Tylenol -) 650 mg PO Q6H [facility] Stop: 05/22/18 12:01 Last Admin: 05/22/18 07:16 Dose: 650 mg Aspirin (Asa -) 325 mg PO DAILY [facility] Last Admin: 05/22/18 09:02 Dose: 325 mg Diazepam (Valium -) 5 mg PO Q8H PRN PRN Reason: MUSCLE SPASMS Docusate Sodium (Colace -) 100 mg PO BID [facility] Last Admin: 05/22/18 09:02 Dose: 100 mg Enoxaparin Sodium (Lovenox -) 40 mg SQ DAILY [facility] Last Admin: 05/22/18 09:02 Dose: 40 mg Folic Acid (Folic Acid -) 1 mg PO DAILY [facility] Last Admin: 05/22/18 09:02 Dose: 1 mg Famotidine/Sodium Chloride (Pepcid 20 Mg Premixed Ivpb -) 20 mg in 50 mls @ 100 mls/hr IVPB BID [facility] Last Admin: 05/22/18 09:02 Dose: 100 mls/hr Methotrexate (Mexate -) 20 mg PO We@1000 [facility] Ondansetron HCl (Zofran Injection) 4 mg IVPUSH Q6H PRN PRN Reason: NAUSEA AND/OR VOMITING Last Admin: 05/20/18 17:45 Dose: 4 mg Oxycodone HCl (Roxicodone -) 5 mg PO Q4H PRN PRN Reason: PAIN LEVEL 1 - 3 Last Admin: 05/21/18 17:16 Dose: 5 mg Oxycodone HCl (Roxicodone -) 10 mg PO Q4H PRN PRN Reason: PAIN LEVEL 6-10 Last Admin: 05/21/18 23:49 Dose: 10 mg Prednisone (Deltasone -) 7.5 mg PO DAILY [facility] Last Admin: 05/22/18 10:17 Dose: 7.5 mg Promethazine HCl (Phenergan Injection -) 12.5 mg IVPUSH Q6H PRN PRN Reason: NAUSEA-FOR RESCUE AFTER 15 MIN Vitamin A (Aquasol A -) 20,000 units PO DAILY [facility] Last Admin: 05/22/18 10:16 Dose: 20,000 units ASSESSMENT AND PLAN: Breast CA (DCIS) s/p right mastectomy with THOMAS flap POD 2 Dermatomyositis - flap checks - pain control - incentive spirometry - monitor drain output - PT - bowel regimen - PO as tolerated - continue home meds - DVT prophylaxis
--- NOTE | 2018-05-22 11:11 | DS ---
Physical Examination Vital Signs: Vital Signs Temperature 98.3 F 05/22/18 04:00 Pulse Rate 82 05/22/18 08:00 Respiratory Rate 17 05/22/18 08:00 Blood Pressure 106/72 05/22/18 08:00 O2 Sat by Pulse Oximetry (%) 100 05/22/18 08:17 Constitutional: Yes: Well Nourished, No Distress, Calm Eyes: Yes: WNL HENT: Yes: Atraumatic Neck: Yes: WNL Cardiovascular: Yes: Regular Rate and Rhythm Respiratory: Yes: Regular, CTA Bilaterally Gastrointestinal: Yes: Normal Bowel Sounds ...Rectal Exam: Yes: Deferred Renal/: Yes: WNL Breast(s): Yes: Other (right mastectomy wound clean, dry, and intact. Drains functioning well. Flap warm and viable with excellent triphasic doppler signal) Musculoskeletal: Yes: WNL Extremities: Yes: WNL Integumentary: Yes: WNL Wound/Incision: Yes: Clean/Dry, Well Approximated Neurological: Yes: Alert, Oriented ...Motor Strength: WNL Psychiatric: Yes: WNL Labs: CBC, BMP 05/22/18 05:30 05/22/18 05:30 Discharge Summary Reason For Visit: RIGHT BREAST CANCER Multicentric right breast DCIS Procedures: Principal: Right breast total mastectomy with sentinel lymph node biopsy and THOMAS flap reconstruction Hospital Course: The patient was admitted postoperatively and monitored in the ICU for frequent flap doppler checks. She did well and her rosado catheter was removed POD#1. She had a warm and viable flap with excellent doppler signal and was OOB POD#2. She had good pain control and was stable for discharge by POD#3. Her drains were functioning well. She was converted back to her normal prednisone dose and kept on cefadroxil and percocet on discharge. She is to follow up with Drs. Guadalupe and Maria Luisa in 1 week. No heavy lifting or exercise. No shower/ bath until drins removed. Record drain outputs daily. Condition: Good - Instructions Diet, Activity, Other Instructions: Dr. Guadalupe & Alex Post Operative Instructions Physical Activity Please take it easy for the first few days. Please be careful moving your arms too much and using your pectoralis muscles ( chest) for the first few days as well. No heavy lifting or exercise until seen by your surgeon. You may walk unlimited amounts and climb stairs. Walk and sleep in a flexed position(head of bed elevated and knees with pillows underneath them) Wound Care Can sponge bath, but avoid showering and getting drains wet. No Baths. Please keep all dressings on as is. Can remove the gauze in bra before sponge bathing, but leave all the tapes/steri-strips on. Please wear surgical bra at all times, except when sponge bathing. Swelling in the abdomen, flanks and thighs is to be expected. Feeling of deep soreness is also to be expected. Diet Resume regular diet. Encourage low salt diet to help with swelling. Encourage fluid intake. NO CAFFEINATED BEVERAGE, just as teas,coffee,soda. Pain Management Do not operate a vehicle while taking narcotic medication. Do not drink alcoholic beverages while taking narcotics. You may take Tylenol or acetaminophen. Any pain prescription medication ordered should be taken as prescribed for moderate to severe pain. ISTOP Ref# [id number] Call Dr Cheng & or Alex for any of the following: Severe pain not relieved by medication Fever of 101 or higher Excessive bleeding or drainage on dressing Any chest pain or shortness of breath, seek Emergency Care. Please call our office within one week to make an appointment to see Dr. Guadalupe Call [phone]. If you have any questions or concerns, please call/return to office sooner. Disposition: HOME - Home Medications Comprehensive Discharge Medication List: Ambulatory Orders Prednisone 7.5 mg PO DAILY 12/14/17 Folic Acid 1 mg PO DAILY 05/18/18 Methotrexate [Mexate -] 20 mg PO Q7D 05/18/18 Acetaminophen [Tylenol .Regular Strength -] 650 mg PO Q6H tablet 05/21/18 Aspirin [ASA -] 81 mg PO DAILY #30 tab.chew 05/21/18 Cefadroxil 500 mg PO BID #20 capsule 05/21/18 Docusate Sodium [Colace -] 100 mg PO BID capsule 05/21/18 Oxycodone HCl 5 mg PO Q6H PRN #30 tablet MDD 8 05/21/18 Vitamin A 10,000 unit PO DAILY #60 capsule 05/21/18
--- NOTE | 2018-05-22 11:36 | PN ---
Progress Note (short form) - Note Progress Note: SUBJECTIVE Patient seen and examined at the bedside. Pain localized to surgical sites, well -controlled. Pleasant. POD #2. OBJECTIVE Vital Signs Temperature 98.3 F 05/22/18 04:00 Pulse Rate 82 05/22/18 08:00 Respiratory Rate 17 05/22/18 08:00 Blood Pressure 106/72 05/22/18 08:00 O2 Sat by Pulse Oximetry (%) 100 05/22/18 08:17 General: Alert, Oriented x 3, No acute distress Head: No signs of trauma Eyes: EOMI, sclera anicteric ENT: Moist mucus membranes Neck: normal ROM Lungs: Lungs CTAB Cardio: Regular rhythm, S1 and S2 present Abdomen: Soft, nondistended; surgical site is clean, dry, and intact Extremities: Distal pulses present SKIN: Warm, Dry, normal turgor Neurologic: CN II-XII grossly intact; normal speech R. flap: Strong pulse ASSESSMENT 57yo F with PMH of dermatomyositis (on steroids and methotrexate) with DCIS ER/ [place]+ s/p R. total mastectomy, lymphoscintogram, R. sentinal node biopsy, possible axillary node dissection reconstruction, Right THOMAS flap reconstruction , and TAP for local pain control, with no acute events overnight, now POD #2. PLAN POD #2 Continuous Doppler checks for R. flap 5mg Valium for muscle spasm oxycodone 5mg q4h PRN for 1-5/10 pain oxycodone 10mg q4h PRN for 6-10/10 pain Phenergan 12.5mg IV q5h PRN for nausea Completed post-op Abx: Cefazolin Disposition per surgery RHEUMATIC Dermatomyositis -Home prednisone and methotrexate FEN Monitor electrolytes -Replete as needed Patient tolerating po intake, advanced to regular diet D5-1/2NS: 125cc/hr PPX DVT: SCDs in place, 325mg ASA GI: Famotidine 20mg IV OOB to chair Incentive spirometer
--- NOTE | 2018-05-22 13:21 | OP ---
DATE OF OPERATION: 05/20/2018 PREOPERATIVE DIAGNOSES: 1. Right breast cancer. 2. Acquired absence of right breast and nipple. POSTOPERATIVE DIAGNOSES: 1. Right breast cancer. 2. Acquired absence of right breast and nipple. PROCEDURES PERFORMED: 1. Right breast reconstruction with deep inferior epigastric nail polish brush machine feeder microvascular free flap. 2. Partial resection of right 3rd rib. 3. Exploration of right internal mammary vessels, with extensive adventitectomies. 4. Intraoperative angiography of right mastectomy skin flaps and lower abdominal flap x2. 5. Processing and interpretation of intraoperative angiography images x2. 6. Bilateral ultrasound-guided transversus abdominis plane regional nerve blocks. 7. Right internal mammary lymph node biopsy. ATTENDING SURGEON: Andrés Rizzo M.D. CO-SURGEON: Davian Guadalupe M.D. BREAST SURGEON: Davian Glass M.D. ANESTHESIA: General endotracheal. ESTIMATED BLOOD LOSS: 100 mL. SPECIMENS: Right internal mammary lymph node to Pathology. DRAINS: 1. No. 15 round Tomas drain x1 to right breast. 2. No. 19 round Tomas drain x2 to abdomen. COMPLICATIONS: None. CONDITION: Stable to the recovery room, extubated. INDICATIONS: The patient is a 57-year-old female with a recent diagnosis of right breast cancer. She has been recommended for a right skin-sparing mastectomy as well as sentinel lymph node biopsy. The patient was evaluated preoperatively for immediate reconstruction and she is most appropriately a candidate for autologous reconstruction using her lower abdominal tissue. The risks, benefits and alternatives of the reconstruction were discussed with the patient preoperatively in detail with the aid of a global cto and all questions were answered. The risks include but are not limited to bleeding, infection, pain, need for revision or further surgery, partial or complete flap loss, partial or complete skin loss, damage to neighboring structures (including nerves, arteries, veins and tendons). The patient understands these risks and has elected to proceed with surgery. DESCRIPTION OF PROCEDURE: After proper identification and marking of the patient in the preoperative holding area, the patient was transported to the operating room and placed supine on the table, where noninvasive anesthesia monitors were applied. Intravenous access was established. General anesthesia was administered and the patient was intubated without difficulty. SCD boots were applied to bilateral extremities. Intravenous antibiotics were then given. A Peralta catheter was then placed. At this point, the patient's abdomen, flanks and bilateral breasts were prepped and draped in the usual sterile fashion. Next, the SPY system was brought onto the field and was sterilely draped. A 4-mL intravenous injection of indocyanine green was given, and angiography of the lower abdominal flap was performed. Processing and interpretation of these images with relative perfusion data was then performed. The diameter perforators were then marked, and there was noted to be a dominant blush on the medial row of the patient's left side. These areas of dominant perfusion were there corroborated with Doppler examination, and these were marked on the lower abdominal skin paddle. At this point, Dr. Glass from Surgical [facility] proceeded to perform a right skin-sparing mastectomy utilizing a periareolar approach, as well as a right sentinel lymph node biopsy. These procedures will be dictated separately. The intraoperative frozen section on the lymph node was negative for metastatic disease. Concurrently, Dr. Guadalupe and I began the reconstruction, working independently as co-surgeons. Attention was first turned towards the umbilicus, where skin hooks were placed at the 12 and 6 o'clock positions. The umbilicus was then circumferentially incised with a No. 15 blade. Periumbilical dissection was then performed with Metzenbaum scissors, with care taken to leave adequate periumbilical fat. At this point the superior and inferior limbs of the lower abdominal incision were incised. The superior limb was carried down through the full thickness of the subcutaneous tissue with electrocautery, with care taken to bevel slightly outwards. Once the anterior abdominal wall was reached, the superior abdominal skin flap was raised up to the level of the xiphoid process in the midline and the costal margin bilaterally. At this point, the inferior incision was carried down layer by layer through the subcutaneous tissue with electrocautery. Bilateral superficial inferior epigastric veins were identified. More proximal dissection along these veins was performed using microvascular instruments and techniques until adequate length and caliber had been achieved. The veins were then ligated and divided at the most proximal extent of the dissection. The remainder of the subcutaneous tissue in the lower incision was then dissected down to the anterior abdominal wall. At this point, attention was turned towards the patient's left side. A lower abdominal flap was raised from a lateral to medial direction just above the level of the anterior abdominal wall fascia. Once the lateral border of the rectus was reached, bipolar electrocautery was used to perform a careful dissection. The lateral row perforators were identified and these were noted to be quite small. Therefore, they were individually ligated and divided. Dissection then proceeded medially until 2 large medial row perforators were identified, which coincided with the angiography images as well as the Doppler signals. Bipolar electrocautery was used to individually circumferentially dissect around the perforators as they exited through the fascia. The fascia was then opened superiorly and inferiorly, as well as the intervening fascia between the perforators. At this point, individual retrograde nail polish brush machine feeder dissections were performed through the full thickness of the rectus abdominis muscle fibers. The rectus abdominis fibers were divided longitudinally. Care was taken to individually identify, circumferentially dissect, ligate and divide muscular side branches from the perforators as they traversed through the rectus abdominis muscle. The perforators were individually dissected down to their takeoffs from the inferior epigastric pedicle. The superior continuation of the pedicle was circumferentially dissected, ligated and divided. At this point a more proximal pedicle dissection was performed until adequate length and caliber had been achieved. At this point the inferior epigastric artery and accompanying vena comitans were individually isolated. The remainder of the lower abdominal tissue was then raised off of the anterior abdominal wall. At this point zone 4 was excised and discarded. Next, the SPY system was brought into the field for another round of angiography, as Dr. Glass had finished the mastectomy at this point. An additional 4-mL intravenous injection of indocyanine green was given, and angiography of the lower abdominal flap as well as the right mastectomy skin flaps was performed. These images were processed and perfusion data was assessed. There was noted to be adequate perfusion to the right mastectomy skin flaps except for a margin of hypoperfusion, which was excised and discarded. The lower abdominal flap was noted to be well perfused through zones 1 and 2, and the majority of zone 3. Areas of hypoperfusion were marked, excised and discarded. At this point, attention was turned towards the lower abdominal flap, where a strong Doppler signal was achieved on the skin paddle and marked with a 5-0 Prolene suture. A skin paddle was then designed and the remainder of the flap was de-epithelialized. There was noted to be bright red bleeding from all dermal edges. At this point, attention was turned towards the right breast pocket for harvesting of recipient vessels. The right breast pocket was irrigated with normal saline solution, and hemostasis was ensured. The interspace between the 2nd and 3rd ribs was then identified. Electrocautery was used to divide the pectoralis major muscles along the course of their fibers overlying this interspace. The pectoralis major muscle fibers were then retracted, and the periosteum and perichondrium on the superior surface of the 3rd rib were incised with electrocautery. At this point, a circumferential subperiosteal and subperichondrial dissection was performed around the 3rd rib at the costochondral junction. A large rongeur was then used to resect the right 3rd rib at the costochondral junction. The periosteum and perichondrium on the deep surface were then carefully incised, and the underlying internal mammary vessels were identified. Medial to the internal mammary vein, there was noted to be a large but soft internal mammary node, and this was carefully dissected free from the medial side of the vein and passed off the field as a specimen. At this point, exploration of the internal mammary vessels was performed using microvascular instruments and techniques. Care was taken to individually identify, circumferentially dissect, ligate and divide side branches. There was noted to be a large dorsal vein emanating from the internal mammary vein, and this was individually dissected as well until adequate length and caliber had been achieved, and it was then ligated and divided, and brought down into the internal mammary vessel field. The artery was then dissected circumferentially and extensive adventitectomy was then performed. Once the internal mammary vessels were adequately repaired, attention was turned towards the microvascular anastomoses. The lower abdominal flap was ligated and divided at the most proximal extent of the dissection. It was noted to weigh 515 g. The right mastectomy specimen was noted to weigh 415 g. The flap was brought up to the right breast pocket, where it was temporarily stapled in place. The microvascular anastomoses were then performed. The internal mammary vein was anastomosed to one of the vena comitans of the inferior epigastric system using a 2.5-mm Synovis research physiologist. Release of all clamps revealed good back flow across this anastomosis. Next, a primary hand-sewn anastomosis was performed between the internal mammary artery and inferior epigastric artery using an 8-0 nylon suture in a simple running fashion. Release of all clamps revealed good flow across the anastomosis, as well as good egress of venous blood from the remaining flap vein. At this point a 2nd venous anastomosis was performed between the remaining flap vein and the dorsal branch from the internal mammary vein. This was performed using a 3.0-mm Synovis research physiologist, and release of all clamps revealed good flow across this anastomosis. At this point, there was noted to be a decrease in the bleeding from the flap dermal edges, and examination of the artery revealed it to be thrombosed. Therefore, the anastomosis was taken down. The internal mammary artery edge was freshened and was flushed in order to ensure no clot was there. On the flap side, there was noted to be a small amount of clot at the anastomosis, and this was carefully removed and flushed out with heparinized saline. At this point the arterial anastomosis was performed again using an 8-0 nylon suture in a simple running fashion, and release of all clamps revealed good flow across the anastomosis as well as a strong biphasic Doppler signal on the flap skin paddle and good bright red bleeding from the flap dermal edges. The flap was then carefully placed into the right breast pocket. Care was taken to ensure good lie of the pedicle, without twisting or kinking. Once the flap was properly positioned onto the right chest wall, it was inset using 2-0 Vicryl suture in a simple interrupted fashion along the superior, medial and inferior edges. With the flap properly in place, the amount of skin paddle to be externalized was marked and redundant skin paddle was de-epithelialized. At this point, a No. 15 round Tomas drain was placed into the right breast pocket and brought out through a separate stab incision laterally. It was secured to the skin with a 3-0 nylon suture. The right breast flap skin paddle was then inset to the surrounding mastectomy flap skin edges using 3-0 PDS in a buried deep dermal fashion, followed by 4-0 Monocryl in a running subcuticular fashion. Dermabond was applied to the right breast closure line, and there was noted to be good capillary refill with a strong Doppler signal at the completion of the closure. Concurrently closure of the abdomen was performed. The fascial edges of the anterior abdominal wall were reapproximated primarily using a No. 1 V-Loc barbed suture in a simple running fashion. Once this was completed, the ultrasound system was brought into the field for the regional nerve blocks. A local anesthetic solution consisting of 20 mL of Exparel mixed with 30 mL of 0.25% Marcaine and 80 mL of normal saline was used to performed bilateral transversus abdominis plane blocks. A total of 30 mL of this local anesthetic mixture was injected into each transversus abdominis plane, again under ultrasound guidance. Once the regional nerve blocks were completed, the patient was placed into a flexed position. Two No. 19 round Tomas drains were then placed in the lower abdominal dissection pocket and brought out through separate stab incisions laterally and secured to the skin with 3-0 nylon sutures. The superior abdominal skin flap was then advanced and closed in layers with 2-0 Vicryl in an interrupted buried fashion in Chely's layer, followed by a 3-0 PDS in a buried deep dermal fashion, and finally 3-0 Monocryl in a regard subcuticular fashion. The site of the umbilicus transposition was marked and a horizontally-oriented ellipse was excised with a core of fat, and the umbilicus was transposed and inset using a 3-0 PDS in a buried deep dermal fashion, followed by 4-0 Monocryl in a running subcuticular fashion. Once all incisions were closed, the drains were hooked up to bulb suction and the exit sites dressed with Biopatch and Tegaderm. The lower abdominal incision was dressed with Prineo tape. At this point the patient was placed into a soft surgical bra, and a hole was cut out for proper flap monitoring. The patient at this point was slowly awakened and was extubated without incident, and then was transported to the recovery room in stable condition. Doppler examination upon reaching the recovery room revealed a strong biphasic signal. ALEJANDRO RIZZO M.D. NANCY/[id number]
[2018-05-22] MEDS ORDERED: SODIUM CHLORIDE NASAL SPRAY 44 ML BOTTLE NS PRN (19:33)
[2018-05-22] MEDS: oxyCODONE HCL 5 MG TABLET PO PRN (20:01)
[2018-05-23] MEDS ORDERED: ACETAMINOPHEN 500 MG TABLET (FP) PO PRN (00:22)
[2018-05-23 05:45] LABS: BASO % 0.8 % (0-2.0); HEMATOCRIT 30.2 % (32.4-45.2); HEMOGLOBIN 10.3 GM/dL (10.7-15.3); LYMPH % 24.3 % (8-40); MCH 34.5 pg (25.7-33.7); MCHC 34.1 g/dl (32.0-36.0); MEAN CELL VOLUME 101.1 fl (80-96); MEAN PLT VOLUME 7.5 fl (7.5-11.1); MONO % 7.4 % (3.8-10.2); NEUT % 66.5 % (42.8-82.8); PLATELET COUNT 184 K/MM3 (134-434); RBC 2.98 M/mm3 (3.60-5.2); RDW 13.7 % (11.6-15.6); WHITE BLOOD COUNT 8.1 K/mm3 (4.0-10.0)
[2018-05-23 06:19] LABS: ALBUMIN 2.7 g/dl (3.4-5.0); ALK PHOS 67 U/L (45-117); ANION GAP 8 MMOL/L (8-16); BILIRUBIN,TOTAL 0.3 mg/dL (0.2-1); BLOOD UREA NITROGEN 10 mg/dL (7-18); CHLORIDE 103 mmol/L (98-107); CO2 26 mmol/L (21-32); CREATININE 0.6 mg/dL (0.55-1.3); GLUCOSE,RANDOM 90 mg/dL (74-106); MAGNESIUM 2.1 mg/dL (1.8-2.4); PHOSPHOROUS 3.7 mg/dL (2.5-4.9); POTASSIUM 3.7 mmol/L (3.5-5.1); SGOT/AST 21 U/L (15-37); SGPT/ALT 17 U/L (13-61); SODIUM 138 mmol/L (136-145); TOT PROT 5.8 g/dl (6.4-8.2)
[2018-05-23 06:24] VITALS: PULSE 98
--- NOTE | 2018-05-23 07:59 | PN ---
Progress Note (short form) - Note Progress Note: Patient seen and examined at bedside Plan is for discharge today Tmax 100.9 at midnight still not seen by PT-Ordered 05/21/18 Patient states she has not ambulated not has she had a a BM Having flatus requesting PT Vital Signs Temperature 98.8 F 05/23/18 06:00 Pulse Rate 98 H 05/23/18 06:00 Respiratory Rate 18 05/23/18 06:00 Blood Pressure 111/73 05/23/18 06:00 O2 Sat by Pulse Oximetry (%) 97 05/23/18 02:00 General: Alert, Oriented x 3, No acute distress Head: No signs of trauma Eyes: EOMI PERRL Neck: supple Lungs: Lungs CTAB. 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 denies cough or urinary symptoms GI: constipated: Continue colace Give dulcolax 20mg po once FEN Monitor electrolytes Replete as needed Tolerating PO intake PPX DVT: SCDs in place, Lovenox, 325mg ASA GI: Pepcid OOB to chair PT for ambulation Incentive spirometer asbestos worker consult
[2018-05-23] MEDS ORDERED: PT OWN MED DRAWER 7, Y5N ONE ×2 (09:46→13:42)
[2018-05-23] MEDS: ASPIRIN 325 MG TABLET PO SCH (09:48)
[2018-05-23] MEDS: predniSONE 5 MG TABLET (UD) PO SCH (09:48)
[2018-05-23] MEDS: FAMOTIDINE 20 MG/50 ML IVPB 20 MG/50 ML MG IVPB SCH (09:48)
[2018-05-23] MEDS: FOLIC ACID 1 MG TABLET (FP) PO SCH (09:48)
[2018-05-23] MEDS: DOCUSATE SODIUM 100 MG CAPSULE (FP) PO SCH (09:48)
[2018-05-23] MEDS: ENOXAPARIN NA (PORCINE) 40 MG/0.4 ML DISP.SYRIN SQ SCH (09:48)
[2018-05-23] MEDS: VITAMIN A 10,000 UNITS CAPSULE PO SCH (09:49)
[2018-05-23] MEDS ORDERED: BISACODYL 5 MG TABLET.DR (FP) PO ONE (10:11)
--- NOTE | 2018-05-23 10:19 | PN ---
Teaching Attending Note Name of Resident: Adrien Valdes ATTENDING PHYSICIAN STATEMENT I saw and evaluated the patient. I reviewed the resident's note and discussed the case with the resident. I agree with the resident's findings and plan as documented. SUBJECTIVE: Pt seen and examined in the ICU. Pain controlled. Low grade fever overnight. OBJECTIVE: Vital Signs Period Temp Pulse Resp BP Sys/Silvestre Pulse Ox Last 24 Hr 98.8 F-100.9 F 97-120 14-25 105-124/58-80 95-97 Intake & Output 05/20/18 05/21/18 05/22/18 05/23/18 23:59 23:59 23:59 23:59 Intake Total 4115 2014 1430 130 Output Total 1170 4711 1480 105 Balance 2945 -2696 -50 25 Weight 77.111 kg 77.111 kg Gen: NAD in chair Heart: RRR Lung: decreased breath sounds at the bases Abd: soft, nontender Ext: no edema Drains with serosanguinous fluid CBC, BMP 05/23/18 05:15 05/23/18 05:15 Active Medications Acetaminophen (Tylenol -) 1,000 mg PO Q6H PRN PRN Reason: FEVER Last Admin: 05/23/18 00:31 Dose: 1,000 mg Aspirin (Asa -) 325 mg PO DAILY [facility] Last Admin: 05/23/18 09:48 Dose: 325 mg Diazepam (Valium -) 5 mg PO Q8H PRN PRN Reason: MUSCLE SPASMS Docusate Sodium (Colace -) 100 mg PO BID [facility] Last Admin: 05/23/18 09:48 Dose: 100 mg Enoxaparin Sodium (Lovenox -) 40 mg SQ DAILY [facility] Last Admin: 05/23/18 09:48 Dose: 40 mg Folic Acid (Folic Acid -) 1 mg PO DAILY [facility] Last Admin: 05/23/18 09:48 Dose: 1 mg Famotidine/Sodium Chloride (Pepcid 20 Mg Premixed Ivpb -) 20 mg in 50 mls @ 100 mls/hr IVPB BID [facility] Last Admin: 05/23/18 09:48 Dose: 100 mls/hr Methotrexate (Mexate -) 20 mg PO We@1000 ARNULFO Ondansetron HCl (Zofran Injection) 4 mg IVPUSH Q6H PRN PRN Reason: NAUSEA AND/OR VOMITING Last Admin: 05/20/18 17:45 Dose: 4 mg Oxycodone HCl (Roxicodone -) 5 mg PO Q4H PRN PRN Reason: PAIN LEVEL 1 - 3 Last Admin: 05/21/18 17:16 Dose: 5 mg Oxycodone HCl (Roxicodone -) 10 mg PO Q4H PRN PRN Reason: PAIN LEVEL 6-10 Last Admin: 05/22/18 20:01 Dose: 10 mg Prednisone (Deltasone -) 7.5 mg PO DAILY [facility] Last Admin: 05/23/18 09:48 Dose: 7.5 mg Promethazine HCl (Phenergan Injection -) 12.5 mg IVPUSH Q6H PRN PRN Reason: NAUSEA-FOR RESCUE AFTER 15 MIN Sodium Chloride (Florien [place] Nasal [place] -) 2 spray NS Q8H PRN PRN Reason: NASAL CONGESTION Last Admin: 05/22/18 19:59 Dose: 2 spray Vitamin A (Aquasol A -) 20,000 units PO DAILY [facility] Last Admin: 05/23/18 09:49 Dose: 20,000 units ASSESSMENT AND PLAN: Breast CA (DCIS) s/p right mastectomy with THOMAS flap POD 3 Dermatomyositis - flap checks - pain control - incentive spirometry - monitor drain output - PT - bowel regimen - PO as tolerated - continue home meds - DVT prophylaxis - d/c planning per surgery
[2018-05-23 11:17] VITALS: BP 115/75
--- NOTE | 2018-05-23 11:26 | PN ---
Progress Note, Physician Chief Complaint: Right breast cancer s/p mastectomy History of Present Illness: The patient was found to have extensive calcifications on mammography and had biopsy proven DCIS. Mastectomy was required and she underwent a right total mastectomy with [place] lymph node biopsy with THOMAS flap reconstruction on May 20, 2018. - Current Medication List Current Medications: Active Medications Acetaminophen (Tylenol -) 1,000 mg PO Q6H PRN PRN Reason: FEVER Last Admin: 05/23/18 00:31 Dose: 1,000 mg Aspirin (Asa -) 325 mg PO DAILY [facility] Last Admin: 05/23/18 09:48 Dose: 325 mg Diazepam (Valium -) 5 mg PO Q8H PRN PRN Reason: MUSCLE SPASMS Docusate Sodium (Colace -) 100 mg PO BID [facility] Last Admin: 05/23/18 09:48 Dose: 100 mg Enoxaparin Sodium (Lovenox -) 40 mg SQ DAILY [facility] Last Admin: 05/23/18 09:48 Dose: 40 mg Folic Acid (Folic Acid -) 1 mg PO DAILY [facility] Last Admin: 05/23/18 09:48 Dose: 1 mg Famotidine/Sodium Chloride (Pepcid 20 Mg Premixed Ivpb -) 20 mg in 50 mls @ 100 mls/hr IVPB BID [facility] Last Admin: 05/23/18 09:48 Dose: 100 mls/hr Methotrexate (Mexate -) 20 mg PO We@1000 [facility] Ondansetron HCl (Zofran Injection) 4 mg IVPUSH Q6H PRN PRN Reason: NAUSEA AND/OR VOMITING Last Admin: 05/20/18 17:45 Dose: 4 mg Oxycodone HCl (Roxicodone -) 5 mg PO Q4H PRN PRN Reason: PAIN LEVEL 1 - 3 Last Admin: 05/21/18 17:16 Dose: 5 mg Oxycodone HCl (Roxicodone -) 10 mg PO Q4H PRN PRN Reason: PAIN LEVEL 6-10 Last Admin: 05/22/18 20:01 Dose: 10 mg Prednisone (Deltasone -) 7.5 mg PO DAILY [facility] Last Admin: 05/23/18 09:48 Dose: 7.5 mg Promethazine HCl (Phenergan Injection -) 12.5 mg IVPUSH Q6H PRN PRN Reason: NAUSEA-FOR RESCUE AFTER 15 MIN Sodium Chloride ([place]rum [place] Nasal [place] -) 2 spray NS Q8H PRN PRN Reason: NASAL CONGESTION Last Admin: 05/22/18 19:59 Dose: 2 spray Vitamin A (Aquasol A -) 20,000 units PO DAILY [facility] Last Admin: 05/23/18 09:49 Dose: 20,000 units - Objective Vital Signs: Vital Signs Temperature 98.2 F 05/23/18 10:00 Pulse Rate 98 H 05/23/18 10:00 Respiratory Rate 18 05/23/18 10:00 Blood Pressure 115/75 05/23/18 10:00 O2 Sat by Pulse Oximetry (%) 97 05/23/18 09:00 Constitutional: Yes: Well Nourished, No Distress, Calm Eyes: Yes: WNL HENT: Yes: Atraumatic, Normocephalic Neck: Yes: WNL Cardiovascular: Yes: Regular Rate and Rhythm Respiratory: Yes: Regular, CTA Bilaterally Gastrointestinal: Yes: Normal Bowel Sounds ...Rectal Exam: Yes: Deferred Genitourinary: Yes: WNL Breast(s): Yes: Other (right mastectomy wound clean, dry, and intact. THOMAS flap warm and viable with excellent doppler flow. Drains functioning well.) Musculoskeletal: Yes: WNL Extremities: Yes: WNL Wound/Incision: Yes: Clean/Dry, Well Approximated Neurological: Yes: Alert, Oriented ...Motor Strength: WNL Psychiatric: Yes: WNL Labs: CBC, BMP 05/23/18 05:15 05/23/18 05:15 Problem List - Problems (1) Ductal carcinoma in situ (DCIS) of right breast Assessment/Plan: The patient is doing well POD#3 s/p total mastectomy with sentinel lymph node biopsy and THOMAS flap reconstruction. Wound clean, dry, and intact with excellent doppler signal of flap. Good pain control and excellent urine output. Drains functioning well. OOB ambulating and stable for discharge today. QUINN drain teaching. To be set up for VNS on discharge. Follow up with Drs. Guadalupe and Alex later this week. No bath shower until drains removed. Record drain outputs daily. No heavy lifting or exercise. Continue steroids and methotrxate at home with percocet for pain and cefadroxil antibiotics while drains in place. Code(s): D05.11 - INTRADUCTAL CARCINOMA IN SITU OF RIGHT BREAST
[2018-05-23 13:56] VITALS: TEMP 98.6
--- NOTE | 2018-05-24 12:26 | SURG ---
Surgery Collar Tailor Note Collar Tailor: Yovany Black PA-C Date of Service: 05/20/18 Diagnosis: Breast cancer Procedure: THOMAS flap reconstruction (s/p right mastectomy by breast surgeon) I was present for the entirety of the operative procedure. For further detail, please refer to operative report. Visit type - Case Type Case Type: Scheduled - New patient This patient is new to me today: Yes Date on this admission: 05/24/18
--- NOTE | 2018-05-25 12:30 | PATH ---
Surgical Pathology Report Patient Name: VARINDER TAO [facility]. Rec. #: [id number] /Age/Gender: 1960 (Age: 57) / F Account: [id number] [facility] Taken: 05/20/2018 Received: 05/20/2018 Reported: 05/25/2018 Physicians: Davian Glass M.D. Specimen(s) Received A: RIGHT AXILLARY SENTINEL LYMPH NODE #1 B: RIGHT AXILLARY SENTINEL LYMPH NODE #2 C: RIGHT AXILLARY SENTINEL LYMPH NODE #3 D: RIGHT AXILLARY SENTINEL LYMPH NODE #4 E: BREAST, MASTECTOMY F: RIGHT BREAST ANTERIOR MARGIN G: RIGHT BREAST UPPER OUTER QUADRANT ANTERIOR MARGIN H: RIGHT INTERNAL MAMMARY LYMPH NODE Clinical History Right breast cancer Intraoperative Consult Diagnosis A. Right axillary sentinel lymph node #1 (FS), excision: One lymph node, negative for carcinoma. B. Right axillary sentinel lymph node #2 (FS), excision: One lymph node, negative for carcinoma. C. Right axillary sentinel lymph node #3 (FS), excision: One lymph node, negative for carcinoma. D. Right axillary sentinel lymph node #4 (FS), excision: One lymph node, negative for carcinoma. Dr. Patel, 05/20/18. Final Diagnosis A. AXILLARY SENTINEL LYMPH NODE #1, RIGHT, EXCISION: ONE OF ONE LYMPH NODE, NEGATIVE FOR CARCINOMA (0/1). B. AXILLARY SENTINEL LYMPH NODE #2, RIGHT, EXCISION: ONE OF ONE LYMPH NODE, NEGATIVE FOR CARCINOMA (0/1). C. AXILLARY SENTINEL LYMPH NODE #3, RIGHT, EXCISION: ONE OF ONE LYMPH NODE, NEGATIVE FOR CARCINOMA (0/1). D. AXILLARY SENTINEL LYMPH NODE #4, RIGHT, EXCISION: ONE OF ONE LYMPH NODE, NEGATIVE FOR CARCINOMA (0/1). E. BREAST, RIGHT, MASTECTOMY: MULTIFOCAL DUCTAL CARCINOMA IN SITU (DCIS), CRIBRIFORM AND SOLID TYPES, HIGH NUCLEAR GRADE, WITH ASSOCIATED CENTRAL NECROSIS AND MICROCALCIFICATIONS, PRESENT IN EIGHT OF TWENTY EIGHT SLIDES (8/28), INVOLVING THE UPPER OUTER QUADRANT (UOQ). DCIS RANGES IN SIZE FROM <1 MM TO 18 MM IN GREATEST MICROSCOPIC DIMENSION. DCIS IS AT <1 MM FROM CLOSEST ANTERIOR MARGIN (UOQ). SEE SPECIMEN F-G FOR FINAL MARGINS. SKIN AND NIPPLE ARE PRESENT AND UNINVOLVED BY DCIS. REMAINDER OF BREAST PARENCHYMA SHOWS ATYPICAL DUCTAL HYPERPLASIA AND FLAT EPITHELIAL ATYPIA IN A BACKGROUND OF PROLIFERATIVE FIBROCYSTIC CHANGES INCLUDING STROMAL FIBROSIS, MICROCYSTS, APOCRINE METAPLASIA, USUAL DUCTAL HYPERPLASIA, COLUMNAR CELL CHANGE, AND SCLEROSING ADENOSIS WITH ASSOCIATED MICROCALCIFICATIONS. FIBROADENOMA AND INTRADUCTAL PAPILLOMA ARE IDENTIFIED. PRIOR BIOPSY SITE CHANGES ARE PRESENT. PATHOLOGIC STAGE (pTNM): pTis pN0(sn). SEE CASE SUMMARY BELOW. F. BREAST, RIGHT, ANTERIOR MARGIN, EXCISION: BENIGN FIBROADIPOSE TISSUE. G. BREAST, RIGHT, UPPER OUTER QUADRANT, ANTERIOR MARGIN, EXCISION: BENIGN BREAST TISSUE. H. INTERNAL MAMMARY LYMPH NODE, RIGHT, EXCISION: BENIGN FIBROADIPOSE TISSUE. NO LYMPHOID TISSUE IDENTIFIED. Comments DCIS of the Breast: Surgical Pathology Cancer Case Summary (Based on AJCC TNM 8 th edition) Procedure _X_ Total mastectomy Specimen Laterality _X_ Right Size (Extent) of DCIS Estimated size (extent) of DCIS (greatest dimension using gross and microscopic evaluation): at least (millimeters) _18__ mm (range: <1-18 MM) Number of blocks with DCIS: _8__ Number of blocks examined: _28__ Histologic Type _X_ Ductal carcinoma in situ Architectural Patterns _X_ Cribriform _X_ Solid Nuclear Grade _X_ Grade III (high) Necrosis _X_ Present, central (expansive "comedo" necrosis) Margins _X__ Uninvolved by DCIS Distance from closest margin (millimeters): _<1_ mm from anterior margin in mastectomy specimen (E); Negative in final anterior margins (F & G). Specify closest margin: Anterior (UOQ) Regional Lymph Nodes Lymph Node Examination Number of Lymph Nodes with Macrometastases (>2 mm): _0__ Number of Lymph Nodes with Micrometastases (>0.2 mm to 2 mm and/or >200 cells): __0__ Number of Lymph Nodes with Isolated Tumor Cells (=0.2 mm and =200 cells): _0_ Number of Lymph Nodes Examined: __4__ Number of [place] Nodes Examined: 4 Pathologic Stage Classification (pTNM, AJCC 8th Edition) Primary Tumor (pT) _X_ pTis (DCIS): Ductal carcinoma in situ Regional Lymph Nodes (pN) Modifier (required only if applicable) _X__ (sn): [place] node(s) evaluated. Category (pN) : _X_ pN0: No regional lymph node metastasis identified or ITCs only. Microcalcifications _X_ Present in DCIS _X_ Present in nonneoplastic tissue Biomarker Studies Results of ER and CA studies performed on this specimen (block# E4) at [facility] are as follows: ER (clone [id number] mouse monoclonal antibody by [employer]): 100% nuclear staining with strong intensity (Positive). CA (clone16 mouse monoclonal antibody by [employer]): ~50% nuclear staining with moderate to strong intensity (Positive). Electronically Signed Pebbles Lopez M.D. Gross Description A. Received fresh for immediate intraoperative consultation labeled "right axillary sentinel lymph node #1" is a lymph node measuring 2 x 1.5 x 1 cm. The specimen is bisected entirely submitted for frozen section analysis in 2 cassettes. B. Received fresh for immediate intraoperative consultation labeled "right axillary sentinel lymph node #2"is a lymph node which measures 0.8 x 0.5 x 0.5 cm. The specimen is entirely submitted for frozen section analysis in 1 cassette. C. Received fresh for immediate intraoperative consultation labeled "right axillary sentinel lymph node #3"is a lymph node which measures 0.6 x 0.5 x 0.4 cm. The specimen is entirely submitted for frozen section analysis in 1 cassette. D. Received fresh for immediate intraoperative consultation labeled "right axillary sentinel lymph node #4"is a lymph node which measures 0.4 x 0.5 x 0.3 cm. The specimen is entirely submitted for frozen section analysis in 1 cassette. E. Received fresh, labeled "right breast," is a 427 gram, 18.5 x 17.5 x 3.8 cm right mastectomy specimen with a short suture marking the superior aspect and a long suture marking the lateral aspect of the specimen, per the surgeon. The anterior surface displays a 5.0 x 4.0 cm hill, ovoid portion of skin with a 1.4 cm in diameter nipple. The deep margin is inked black and the anterior soft tissue margin is inked blue. The specimen is serially sectioned from lateral to medial. Sectioning reveals abundant dense, white, focally firm fibrous tissue. No definitive mass is identified. [employer] Safety Adviser sections are submitted in 28 cassettes as follows: 1-serially sectioned nipple; 2-subareolar shave; 3-5-upper outer quadrant; 6-8-lower outer quadrant; 9-11-upper inner quadrant; 12-14-lower inner quadrant; 15-anterior soft tissue margin; 16-skin; 17-deep margin. Additional cassettes are submitted as follows: 18-19-upper outer quadrant with anterior soft tissue margin; 60-36-budibadois upper outer quadrant. Time to formalin fixation: 28 minutes Total formalin fixation time: Approximately 7 hours. F. Received fresh labeled "right breast anterior margin," is a 9.5 x 5.0 x 1.1 cm portion of fibroadipose tissue with a suture marking the biopsy cavity side, per the surgeon. The new margin is inked blue and the specimen is serially sectioned. The specimen is entirely and sequentially submitted in 17 cassettes. G. Received fresh labeled "upper outer quadrant anterior margin right breast," is a 4.8 x 3.5 x 0.8 cm portion of fibroadipose tissue with a suture marking the biopsy cavity side, per the surgeon. The new margin is inked blue and the specimen is serially sectioned. The specimen is entirely and sequentially submitted in 7 cassettes. H. Received in formalin labeled "right internal mammary lymph node," are 2 hill-yellow soft tissue fragments measuring 0.4 and 0.5 cm in greatest dimension, possibly containing lymph nodes. The specimens are submitted in toto in one cassette. EUGENIE/05/20/2018 simone05/20/2018
[2018-05-26] MEDS ORDERED: METHOTREXATE 2.5 MG TABLET PO SCH (10:00)
== END 2018-05-23 14:02 | disposition home or self-care (01) | DRG 362 ==
LOC: JSAMEDAYSX 06:09 → JICU 19:51
PROVIDERS: ADMIT Surgery Surgical Oncology; ATTEND Surgery Surgical Oncology
PROC: 0HJT0ZZ Inspection of Right Breast, Open Approach (ICD-10-PCS; 2018-05-20)
PROC: 07B80ZX Excision of Right Internal Mammary Lymphatic, Open Approach, Diagnostic (ICD-10-PCS; 2018-05-20)
PROC: 4A1GXSH Monitoring of Skin and Breast Vascular Perfusion using Indocyanine Green Dye, External Approach (ICD-10-PCS; 2018-05-20)
PROC: 0HTT0ZZ Resection of Right Breast, Open Approach (ICD-10-PCS; principal; 2018-05-20 08:00)
PROC: 07B50ZX Excision of Right Axillary Lymphatic, Open Approach, Diagnostic (ICD-10-PCS; 2018-05-20 08:00)
PROC: 0HRT077 Replacement of Right Breast using Deep Inferior Epigastric Artery Perforator Flap, Open Approach (ICD-10-PCS; 2018-05-20 08:00)
PROC: 0PB10ZZ Excision of 1 to 2 Ribs, Open Approach (ICD-10-PCS; 2018-05-20 08:00)
DX: D05.11 Intraductal carcinoma in situ of right breast (principal); M33.10 Other dermatomyositis, organ involvement unspecified; R50.82 Postprocedural fever; Z90.11 Acquired absence of right breast and nipple; J98.11 Atelectasis
CPT/HCPCS: 36415; 71045-TC-FY; 78195-TC; 80048; 80053; 83735; 84100; 85025; 86850; 86900; 86901; 88307-TC; 88331-TC; 94760; 97116-GP; A9541; J1644

== ENCOUNTER 2020-05-02 04:29 | Day surgery (SDC) | payer OTHER ==
[2020-05-01 13:12] VITALS: BMI 29.2
[~2020-05-02 04:29] MED LIST: ACETAMINOPHEN 325 MG TABLET (FP) PO PRN; BSS (NA/CA/MG/K) BALANCED SALT SOLUTION OPHTH SOLN 15 ML BOTTLE OD ONE; CHONDROITIN SU A/HYALUR SOD 1 KIT IO ONE; EPINEPHrine/PF 1 MG/1 ML (1:1,000) AMPULE SQ ONE; LIDOCAINE HCL 1% PRESERVATIVE FREE - 30ML VIAL IO ONE; POVIDONE-IODINE 5% OPHTHALMIC PREP 30 ML SOLUTION OD ONE; TETRACAINE 0.5% OPHTH SOLN 2 ML BOTTLE OD ONE
[2020-05-02] MEDS ORDERED: TROPICAMIDE 1% OPHTH SOLN 15 ML BOTTLE ONE (06:20)
[2020-05-02] MEDS ORDERED: CYCLOPENTOLATE HCL 1% OPHTH SOLN 2 ML BOTTLE ONE (06:20)
[2020-05-02] MEDS ORDERED: KETOROLAC TROMETHAMINE 0.5% EYE DROP 1 DROP DROPS ONE (06:20)
[2020-05-02] MEDS ORDERED: OFLOXACIN 0.3% OPHTHALMIC SOLUTION 5 ML BOTTLE ONE (06:20)
[2020-05-02] MEDS: PHENYLEPHRINE 2.5% OPHTH SOLN 15 ML BOTTLE OP SCH ×3 (06:45→06:55)
[2020-05-02] MEDS: TROPICAMIDE 1% OPHTH SOLN 15 ML BOTTLE OP SCH ×3 (06:45→06:55)
[2020-05-02] MEDS: KETOROLAC TROMETHAMINE 0.5% EYE DROP 1 DROP DROPS OP SCH ×3 (06:45→06:55)
[2020-05-02] MEDS: CYCLOPENTOLATE HCL 1% OPHTH SOLN 2 ML BOTTLE OP SCH ×3 (06:45→06:55)
[2020-05-02] MEDS: OFLOXACIN 0.3% OPHTHALMIC SOLUTION 5 ML BOTTLE OP SCH ×3 (06:45→06:55)
[2020-05-02] MEDS ORDERED: CHONDROITIN SU A/HYALUR SOD 1 KIT ONE (07:07)
[2020-05-02] MEDS ORDERED: VANCOMYCIN 500 MG VIAL (RESTRICTED TO ID ONLY) ONE (07:08)
[2020-05-02] MEDS ORDERED: BUPIVACAINE HCL/PF 0.75% 10 ML VIAL ONE (07:08)
[2020-05-02] MEDS ORDERED: BSS (NA/CA/MG/K) BALANCED SALT SOLUTION OPHTH SOLN 15 ML BOTTLE ONE (07:08)
[2020-05-02] MEDS ORDERED: WATER FOR INJ,STERILE 10 ML ONE (07:08)
[2020-05-02] MEDS ORDERED: LIDOCAINE HCL/PF 2% SDV 5ML VIAL ONE (07:08)
[2020-05-02] MEDS ORDERED: PROPOFOL 20 ML ONE (08:03)
[2020-05-02] MEDS ORDERED: LIDOCAINE HCL/PF 2% SDV 5ML VIAL PNB ONE (08:11)
[2020-05-02] MEDS ORDERED: BUPIVACAINE HCL/PF 0.75% 10 ML VIAL RB ONE (08:11)
[2020-05-02] MEDS ORDERED: POVIDONE-IODINE 5% OPHTHALMIC PREP 30 ML SOLUTION OD ONE (08:15)
[2020-05-02] MEDS ORDERED: CHONDROITIN SU A/HYALUR SOD 1 KIT IO ONE (08:25)
[2020-05-02] MEDS ORDERED: LIDOCAINE HCL 1% PRESERVATIVE FREE - 30ML VIAL IO ONE (08:25)
[2020-05-02] MEDS ORDERED: BSS (NA/CA/MG/K) BALANCED SALT SOLUTION OPHTH SOLN 15 ML BOTTLE OD ONE (08:25)
[2020-05-02] MEDS ORDERED: TRYPAN BLUE 0.5 ML DISP.SYRIN IO ONE (08:27)
[2020-05-02] MEDS ORDERED: EPINEPHrine/PF 1 MG/1 ML (1:1,000) AMPULE SQ ONE (08:34)
[2020-05-02 10:15] VITALS: BP 119/74; PULSE 80; TEMP 98.6
== END 2020-05-02 10:16 | disposition home or self-care (01) ==
LOC: JASU-SURG 04:29
PROVIDERS: ATTEND Ophthalmology
PROC: 08RJ3JZ Replacement of Right Lens with Synthetic Substitute, Percutaneous Approach (ICD-10-PCS; principal; 2020-05-02 08:00)
DX: H26.9 Unspecified cataract (principal)

== ENCOUNTER 2022-10-24 22:24 | Emergency (ER) | payer OTHER ==
[2022-10-24 22:32] VITALS: BP 131/59; PULSE 83; RESP 18; TEMP 98.3; BMI 27.8
[2022-10-25] MEDS ORDERED: MAG HYDROX/AL HYDROX/SIMETH 30 ML UNIT-DOSE CUP PO ONE (00:44)
[2022-10-25] MEDS ORDERED: FAMOTIDINE 10 MG TABLET PO ONE (00:44)
[2022-10-25] MEDS ORDERED: MAG HYDROX/AL HYDROX/SIMETH 30 ML UNIT-DOSE CUP ONE (00:51)
[2022-10-25] MEDS ORDERED: FAMOTIDINE 20 MG TABLET ONE (00:52)
== END 2022-10-25 01:57 | disposition home or self-care (01) ==
LOC: JER 22:24
DX: R07.0 Pain in throat (principal); Z20.822 Contact with and (suspected) exposure to COVID-19
CPT/HCPCS: 70490-TC; 87651; 99284-25